=== PATIENT | female | born 1990 | race African-American/Black ===

== ENCOUNTER 2017-06-01 18:30 | Emergency (ER) | payer OTHER ==
[~2017-06-01] VITALS: Ht 160 cm; Wt 45.4 kg
[~2017-06-01 18:30] MED LIST: ACETAMINOPHEN-1 EAC1 ORAL; ATARAX25 MG ORAL; ATARAX50 MG ORAL; BENADRYL A12.5 MG/5 PO; BENADRYL50 MG PO; CEPHALEXIN500 MG ORAL; ELIMITE 5% CREA60 GM TOPIC; IBUPROFEN400 MG ORAL; IBUPROFEN600 MG PO; LOTRISONE CREAM15 GM TP; MACROBID 100 M100 MG PO; MACROBID100 MG ORAL; METROCREAM45 GM TP; NITROFURANTOIN100 MG PO; NKM; NORCO 5-325 TA1 EAC1 ORAL; NORCO 5-325 TA1 EACH ORAL; NYSTATIN CREAM15 GM TOPIC; ONDANSETRON ODT4 MG PO; PENICILLIN V P500 MG PO; PEPCID20 MG ORAL; PREDNISONE20 MG ORAL; PREDNISONE20 MG PO; RANITIDINE HCL150 MG ORAL; TRAMADOL HCL50 MG ORAL; ZOFRAN ODT4 MG ORAL; ZOFRAN ODT8 MG ORAL; [UNRECOGNIZED DRUG - REMARK] PO
[2017-06-01] MEDS ORDERED: Mylanta II UD 30ml ORAL ONE (19:15)
[2017-06-01] MEDS ORDERED: Lidocaine 2% Visc 15ml soln ORAL ONE (19:15)
[2017-06-01] MEDS ORDERED: Dicyclomine HCl 10mg/5ml oral soln ORAL ONE (19:15)
[2017-06-01 19:18] VITALS: BP 99/66
[2017-06-01] MEDS ORDERED: Metoclopramide 10mg/10ml Liq ORAL ONE (19:45)
[2017-06-01 20:23] LABS: APPEARANCE,URINE SLIGHTLY CLOUDY; KETONES,URINE 3+ (NEGATIVE); LEUKOCYTE ESTERASE ,URINE 1+ (NEGATIVE); NITRITE,URINE NEGATIVE (NEGATIVE); PH,URINE 6 (4.5-8.0); PROTEIN,URINE 2+ (NEGATIVE); UROBILINOGEN,URINE 1 MG/DL (0.0-1.0)
[2017-06-01] MEDS ORDERED: TRAMADOL HCL50 MG ORAL (20:50)
[2017-06-01] MEDS ORDERED: REGLAN10 MG ORAL (20:50)
[2017-06-01] MEDS ORDERED: NITROFURANTOIN100 M2 ORAL (20:51)
[2017-06-01 20:52] LABS: SQUAMOUS EPITHELIAL CELL,UR FEW /LPF (NONE/OCC)
[2017-06-01 20:53] LABS: BACTERIA,URINE MODERATE /HPF; MUCUS,URINE MANY /LPF (NONE/OCC)
[2017-06-01 21:05] VITALS: BP 105/72
--- NOTE | 2017-06-01 22:39 | Emergency Room Report ---
History of Present Illness General Chief Complaint: Abdominal Pain Source: Patient Present Illness HPI The patient is a 27-year-old female presenting for nausea and abdominal pain which began 3 days prior. Pain began in the mid upper abdomen and has not radiated. It has become worse now that the patient has not been able to eat due to the nausea. Pain described as a 7/10 dull ache. She denies any other symptoms including fever, chills, vomiting, diarrhea, constipation, dysuria Allergies: Coded Allergies: No Known Allergies (Unverified , 10/01/12) Patient History Past Medical History: see triage record Pertinent Family History: none Last Menstrual Period: thu Now: No Reviewed Nursing Documentation: PMH: Agreed, PSxH: Agreed Nursing Documentation-PMH Past Medical History: No History, Except For Hx Cardiac Problems: No - ENDOMETRIOSIS Hx Gastrointestinal Problems: Yes - ENDOMETRIOSIS Review of Systems All Other Systems: negative except mentioned in HPI Physical Exam Vital Signs Date Time Temp Pulse Resp B/P Pulse Ox O2 Delivery O2 Flow Rate FiO2 06/01/17 18:51 98.4 71 18 99/66 100 Room Air Sp02 EP Interpretation: reviewed, normal General Appearance: no apparent distress, alert, GCS 15, non-toxic Head: normocephalic, atraumatic Eyes: bilateral eye PERRL, bilateral eye normal inspection ENT: hearing grossly normal, normal pharynx, no angioedema, normal voice Neck: full range of motion, supple/symm/no masses Gastrointestinal: normal bowel sounds, soft, non-distended, no guarding, no rebound, tenderness - epigastric Rectal: deferred Genitourinary: normal inspection, no CVA tenderness Musculoskeletal: back normal, gait/station normal, normal range of motion, non- tender, calf tenderness Neurologic: alert, oriented x3, responsive, motor strength/tone normal, sensory intact, speech normal Psychiatric: judgement/insight normal, memory normal, mood/affect normal, no suicidal/homicidal ideation Skin: normal color, no rash, warm/dry, well hydrated Medical Decision Making PA Attestation Dr. Mendieta is my supervising physician. Patient management was discussed with my supervising physician Diagnostic Impression: Primary Impression: Abdominal pain Qualified Codes: R10.13 - Epigastric pain Additional Impression: UTI (urinary tract infection) Qualified Codes: N39.0 - Urinary tract infection, site not specified; R31.9 - Hematuria, unspecified ER Course The patient is a 27-year-old female presenting for nausea and abdominal pain Differential diagnoses considered include but not limited to gastritis, pancreatitis, appendicitis, , UTI PE: afebrile. NAD Abdomen is soft. Tenderness to palpation over epigastric region only. No CVA tenderness. No right lower quadrant tenderness The patient is given A GI cocktail with Reglan and states that symptoms have improved Urinalysis shows signs of infection She'll be discharged home with a prescription for Macrobid and Reglan. She will follow up with primary DrPeg dye given Laboratory Tests Test 06/01/17 20:10 Urine Color Yellow Urine Appearance Slightly cloudy Urine pH 6 (4.5-8.0) Urine Specific [place] 1.020 (1.005-1.035) Urine Protein 2+ (NEGATIVE) H Urine Glucose (UA) Negative (NEGATIVE) Urine Ketones 3+ (NEGATIVE) H Urine Occult Blood 1+ (NEGATIVE) H Urine Nitrite Negative (NEGATIVE) Urine Bilirubin Negative (NEGATIVE) Urine Urobilinogen 1 MG/DL (0.0-1.0) H Urine Leukocyte Esterase 1+ (NEGATIVE) H Urine RBC 2-4 /HPF (0 - 2) H Urine WBC 2-4 /HPF (0 - 2) Urine Squamous Epithelial Cells Few /LPF (NONE/OCC) Urine Bacteria Moderate /HPF (NONE) H Urine Mucus Many /LPF (NONE/OCC) H Lab Results Impression Moderate bacteria Last Vital Signs Date Time Temp Pulse Resp B/P Pulse Ox O2 Delivery O2 Flow Rate FiO2 06/01/17 19:18 98.4 68 18 99/66 100 Room Air Status: improved Disposition: HOME, SELF-CARE Condition: Improved Scripts Nitrofurantoin Monohyd/M-Cryst* (MACROBID 100 MG*) 100 Mg Capsule 100 MG ORAL EVERY 12 HOURS, #14 CAP Prov: TERZIAN,PINEDA P.A. 06/01/17 Metoclopramide Hcl* (REGLAN*) 10 Mg Tablet 10 MG ORAL THREE TIMES A DAY, #30 TAB Prov: TERZIAN,PINDEA P.A. 06/01/17 Tramadol Hcl* (ULTRAM*) 50 Mg Tablet 50 MG ORAL Q6H Y for For Pain, #10 TAB 0 Refills Prov: TERZIAN,PINEDA P.A. 06/01/17 Referrals: [facility] (PCP) Patient Instructions: Abdominal Pain, Adult Additional Instructions: I discussed my findings with the patient. All questions and concerns have been answered. Treatment and medication compliance have been addressed. I advised the patient that they need to follow up with PMD in 3-5 days. Return to ED if symptoms worsen, new symptoms arise, or if needed for any reason. Patient verbalized understanding of discharge instructions. PINEDA VAZQUEZ Jun 01, 2017 22:39
== END 2017-06-01 21:05 | disposition home or self-care (01) ==
LOC: EMR 19:06
DX: R10.9 Unspecified abdominal pain (principal); N39.0 Urinary tract infection, site not specified; Z87.42 Personal history of other diseases of the female genital tract
CPT/HCPCS: 81003; 81025; 87086; 99284